=== PATIENT | male | born 1985 | race Caucasian/White ===

== ENCOUNTER 2019-06-09 13:24 | Emergency (ER) | payer SELFPAY ==
[2019-06-09 13:30] VITALS: BP 140/77
--- NOTE | 2019-06-09 20:05 | ED Physician Documentation ---
ED Addendum - Addendum Addendum: I went to check on the patient 3 times, patient was never in the room. Patient presumed to have eloped from the emergency department.
== END 2019-06-09 15:10 | disposition left against medical advice (07) ==
LOC: ED 13:24
DX: Z53.21 Procedure and treatment not carried out due to patient leaving prior to being seen by health care provider (principal)